=== PATIENT | female | born 1995 | race Caucasian/White ===

== ENCOUNTER 2023-07-23 22:35 | Emergency (ER) | payer OTHER, MEDICAID, SELFPAY ==
--- NOTE | ~2023-07-23 | XR_ITS ---
EXAMINATION: XR KNEE, RIGHT CLINICAL INFORMATION: Pain. COMPARISON: None available. TECHNIQUE: Four views of the right knee. FINDINGS: No fracture or joint effusion. Alignment is anatomic. Joint spaces are maintained. No abnormal soft tissue calcification. XR/XR knee RT 3V IMPRESSION: No significant abnormality identified.
--- NOTE | ~2023-07-23 | XR_ITS ---
EXAMINATION: XR KNEE, LEFT CLINICAL INFORMATION: Pain. COMPARISON: None available. TECHNIQUE: Four views of the left knee. FINDINGS: No fracture or joint effusion. Alignment is anatomic. Joint spaces are maintained. No abnormal soft tissue calcification. XR/XR knee LT 3V IMPRESSION: No significant abnormality identified.
[2023-07-23 22:43] VITALS: BP 137/80; BP 152/62; PULSE 102; PULSE 108; RESP 18; TEMP 37.3; O2SAT 97; BMI 22.9
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
[2023-07-24 01:33] VITALS: BP 115/75; PULSE 100; RESP 18; O2SAT 97
== END 2023-07-24 01:36 | disposition home or self-care (01) ==
PROVIDERS: Emergency Provider Internal Medicine
DX: S80.01XA Contusion of right knee, initial encounter (principal); S80.02XA Contusion of left knee, initial encounter; M25.562 Pain in left knee; M25.561 Pain in right knee; V43.52XA Car driver injured in collision with other type car in traffic accident, initial encounter; Y93.9 Activity, unspecified; Y92.411 Interstate highway as the place of occurrence of the external cause; Y99.9 Unspecified external cause status
CPT/HCPCS: 73562; 99284

== ENCOUNTER 2024-02-17 17:33 | Outpatient (REF) | payer OTHER, MEDICAID, SELFPAY ==
[2024-02-18 15:33] LABS: C. trachomatis RNA TMA NOT DETECTED (NOT DETECTED); N. gonorrhoeae RNA TMA DETECTED (NOT DETECTED)
[2024-03-01 00:05] LABS: C. trachomatis RNA TMA NOT DETECTED (NOT DETECTED); N. gonorrhoeae RNA TMA DETECTED (NOT DETECTED); Trichomonas (NAAT) NOT DETECTED (NOT DETECTED)
== END 2024-02-17 17:34 | disposition home or self-care (01) ==
LOC: HO.HHCLNP 17:33
PROVIDERS: Visit Provider Nurse Practitioner Family
DX: Z12.4 Encounter for screening for malignant neoplasm of cervix (principal); Z20.2 Contact with and (suspected) exposure to infections with a predominantly sexual mode of transmission
CPT/HCPCS: 36415; 81513; 87491; 87591; 87661; 88142

== ENCOUNTER 2024-02-23 15:51 | Outpatient (REF) | payer MEDICAID, SELFPAY | END 2024-02-23 15:52 | disposition home or self-care (01) | LOC: HO.HHCLNP 15:51 | PROVIDERS: Visit Provider Nurse Practitioner Family | DX: A54.9 Gonococcal infection, unspecified (principal) | CPT/HCPCS: 36415; 87081 ==

== ENCOUNTER 2024-02-27 13:05 | Outpatient (REF) | payer OTHER, MEDICAID, SELFPAY ==
[2024-02-28 09:11] LABS: HIV AB/AG Nonreactive (Nonreactive); HIV Num 1 0.05 S/CO (0.00-0.99); ~HepC Num1 0.21 S/CO (0.00-0.79); ~Hepatitis C Antibody Nonreactive (Nonreactive)
[2024-02-29 03:48] LABS: Herpes Simplex Type 2 IgG 2.63 index
[2024-02-29 08:54] LABS: RPR Rapid Plasma Reagin NON-REACTIVE (NON-REACTIVE)
== END 2024-02-27 13:06 | disposition home or self-care (01) ==
LOC: HO.HHCL 13:05
PROVIDERS: Visit Provider Nurse Practitioner Family
DX: Z11.4 Encounter for screening for human immunodeficiency virus [HIV] (principal); Z20.2 Contact with and (suspected) exposure to infections with a predominantly sexual mode of transmission
CPT/HCPCS: 36415; 86592; 86695; 86696; 86803; 87389

== ENCOUNTER 2024-03-09 19:54 | Outpatient (REF) | payer OTHER, MEDICAID, SELFPAY ==
[2024-03-12 21:13] LABS: C. trachomatis RNA TMA NOT DETECTED (NOT DETECTED); N. gonorrhoeae RNA TMA NOT DETECTED (NOT DETECTED)
== END 2024-03-09 19:55 | disposition home or self-care (01) ==
LOC: HO.HHCLNP 19:54
PROVIDERS: Visit Provider Nurse Practitioner Family
DX: A54.9 Gonococcal infection, unspecified (principal); Z20.2 Contact with and (suspected) exposure to infections with a predominantly sexual mode of transmission
CPT/HCPCS: 36415; 81513; 87491; 87591

== ENCOUNTER 2024-08-24 15:44 | Outpatient (REF) | payer OTHER, MEDICAID, SELFPAY ==
[2024-08-24 17:46] LABS: MANUAL DIFF FLAG NO
[2024-08-24 18:08] LABS: Partial Thromboplastin Time 30.5 SEC (26.0-36.8)
[2024-08-24 19:01] LABS: Alanine Aminotransferase 18 U/L (0-31); Albumin Level 4.6 g/dL (3.5-5.0); Alkaline Phosphatase 54 U/L (39-117); Anion Gap 10 (12-20); Aspartate Amino Transferase 19 U/L (5-31); Bilirubin Total 0.2 mg/dL (0.0-1.0); Blood Urea Nitrogen 15 mg/dL (9-16); Calcium 9.8 mg/dL (8.4-10.2); Carbon Dioxide 24 mmol/L (22-29); Chloride 108 mmol/L (96-108); Estimated Glomerular Filt Rate > 60; Glucose Random 101 mg/dL (60-115); Potassium 3.3 mmol/L (3.3-5.1); Sodium 139 mmol/L (135-145); Total Protein 7.5 g/dL (6.5-8.0)
[2024-08-24 19:03] LABS: HCG Quantitative < 2 mIU/mL
[2024-08-24 19:20] LABS: Basophils Percent Auto 0.3 % (0-2); Eosinophils Absolute Auto 0.1 X10*3/uL (0.0-0.4); Hematocrit 40.4 % (37.0-47.0); Imm Gran Abs Auto 0.02 X10*3/uL (0.00-0.03); Imm Gran Pct Auto 0.3 % (0.0-0.4); Lymphocytes Absolute Auto 1.7 X10*3/uL (1.2-4.9); Lymphocytes Percent Auto 21.4 % (20-40); Mean Corpuscular HGB Conc 34.7 g/dl (31.0-35.0); Mean Corpuscular Hemoglobin 31.3 pg (27.0-33.0); Mean Corpuscular Volume 90.4 fL (80.0-98.0); Mean Platelet Volume 11.7 fL (9.4-12.3); Monocytes Absolute Auto 0.4 X10*3/uL (0.1-1.2); Monocytes Percent Auto 5.4 % (2-11); Neutrophils Absolute Auto 5.7 x10*3/uL (2.0-8.3); Neutrophils Percent Auto 71.6 % (45-73); Platelet Count 192 X10*3/uL (160-400); Red Blood Count 4.47 X10*6/uL (4.20-5.50); Red Cell Distribution Width 12.1 % (11.0-16.0)
== END 2024-08-24 15:45 | disposition home or self-care (01) ==
LOC: HO.HHCL 15:44
PROVIDERS: Visit Provider Internal Medicine Geriatric Medicine
DX: Z01.812 Encounter for preprocedural laboratory examination (principal)
CPT/HCPCS: 36415; 80053; 84702; 85025; 85730

== ENCOUNTER 2025-02-20 12:18 | Outpatient (REF) | payer OTHER, MEDICAID, SELFPAY ==
--- OUTSIDE RECORDS SUMMARY | 2025-02-20 14:48 | XMS_ITS | Encounter Summary ---
Author Organization [employer] Address [address] [place] [address] 7 [place] [address] Care Team Providers Care Credit Union Manager Name Role Phone Roxy Haas [facility] Primary Care Provider [phone] Thi Saez ANTENNA DESIGN ENGINEER Primary Care Provider [phone] Veronica Peña SENIOR PRODUCT CONSULTANT Primary Care Provider [phone] Reason for Visit * Reason Onset Date Comments Appointment Request 11/08/2022 Encounter Details Date Type Department Care Team (Late st Contact Info) Description 11/01/2022 Telephone [facility] MEDICINE [address] [place], [place] [phone] Samina Roxy [facility] [address] [place], [place] [phone] Appointment Request Social History Tobacco Use Types Packs/Day Years Used Date Smoking Tobacco: Never Assessed Comments Unknown Sex and Gender Information Value Date Recorded Sex Assigned at Female 09/20/2022 10:22 AM EDT Legal Sex Female 10:22 AM EDT Gender Identity Female 09/20/2022 10:22 AM EDT Sexual Orientation Bisexual 09/20/2022 10 :22 AM EDT documented as of this encounter Miscellaneous Notes * Telephone Encounter - Katherine Diez RN - 01/03/2023 10:52 AM EST TC X1 to pt regarding scheduling Depo RV window 01/28/23-02/11/23. No answer LVM to return call to nurses. * Telephone Encounter - Katherine Diez RN - 11/08/2022 2:10 PM EST TC X1 to pt to r/s Depo NV. No answer. LVM to return call to office. If pt returns call please schedule in any NV slot in any team prior to 11/19/22. * Telephone Encounter - Candy Serrano - 11/08/2022 9:48 AM EST Tc from patient re calling in regards to r/s appt from 11/08/22 with nurse. Details: Depo-RV (11/08/22-11/22/22) * Telephone Encounter - Markus Mathis - 11/05/2022 10:06 AM EST Tc from pt requesting to R/s 11-08-22, Wheel Borer attempted to r/s nothing available at the moment advise pt a nurse will be returning call. documented in this encounter Plan of Treatment Upcoming Encounters Date Type Department Care Team (Late st Contact Info) Description 04/25/2025 1:00 PM EDT Clinical Support [facility] MEDICINE [address] [place] [address] documented as of this encounter Visit Diagnoses Not on filedocumented in this encounter Care Teams Credit Union Manager Relationship Specialty Start Date End Date [place] FNP [address] [place] [id number] PCP - General Family Medicine 05/26/22 08/29/23 Thi Saez FNP [address] [place] [address] PCP - General Family Medicine 08/30/23 03/01/24 Veronica Peña NP [address] [place] [address] PCP - General Family Medicine 03/02/24 documented as of this encounter
--- OUTSIDE RECORDS SUMMARY | 2025-02-20 14:48 | XMS_ITS | Encounter Summary ---
Author Organization [employer] Address [address] [place] [address] [address] [place] [address] Care Team Providers Care Database Consultant Name Role Phone Thi Saez Primary Care Provider [phone] Veronica Peña NP Primary Care Provider [phone] Encounter Details Date Type Department Care Team (Late Contact Info) Description 12/08/2023 Orders Only [facility] [address] [place] [address] Thi Saez FNP [address] [place] [address] Social History Tobacco Use Types Packs/Day Years Used Date Smoking Tobacco: Never Smokeless Tobacco: Never Comments No Sex and Gender Information Value Date Recorded Sex Assigned at Female 09/20/2022 10:22 AM EDT Legal Sex Female 10:22 AM EDT Gender Identity Female 09/20/2022 10:22 AM EDT Sexual Orientation Bisexual 09/20/2022 10 :22 AM EDT documented as of this encounter Plan of Treatment Upcoming Encounters Date Type Department Care Team (Late Contact Info) Description 04/25/2025 1:00 PM EDT Clinical Support [facility] MEDICINE [address] [place] [address] documented as of this encounter Visit Diagnoses Not on filedocumented in this encounter Care Teams Database Consultant Relationship Specialty Start Date End Date Thi Saez FNP [address] [place] [address] PCP - General Family Medicine 08/30/23 03/01/24 Veronica Peña NP [address] [place] [id number] PCP - General Family Medicine 03/02/24 documented as of this encounter
--- OUTSIDE RECORDS SUMMARY | 2025-02-20 14:48 | XMS_ITS | Encounter Summary ---
Author Organization [employer] Address [address] [facility] [address] [place] [address] Care Team Providers Care Personnel Administrator Name Role Phone Veronica Peña NP Primary Care Provider [phone] Encounter Details Date Type Department Care Team ([facility] st Contact Info) Description 11/06/2024 Abstract [facility] MEDICINE [address] [place], [place] [phone] Veronica Peña NP [address] [place], [place] [phone] Social History Tobacco Use Types Packs/Day Years Used Date Smoking Tobacco: Never Smokeless Tobacco: Never Housing Stability Answer Date Recorded What is your housing situation today? I have gretchen armstrong 03/07/[address] you li ve. Do you have problems with any of the following? None of the above 03/07/2024 Food Insecurity Answer Date Recorded Within the past 12 months, y ou worried that your food would run out before you got money to buy more: Never True 03/07/2024 Within the past 12 months,th e food you bought just didn't last and you didn't have enough money to get more: Never True Transportation Answer Date Recorded In the past 12 months, has l ack of transportation kept you from medical appts, meetings, work or from getting things needed for daily living? No 03/07/2024 Utilities Answer Date Recorded In the past 12 months, has t he electric, gas, oil or water company threatened to shut off services in your home? No 03/07/2024 Comments No Sex and Gender Information Value [...] Clinical Support [facility] MEDICINE [address] [place] [address] documented as of this encounter Procedures Procedure Name Priority Date/Time Associated Diagnosis Comments PAP/HPV Routine 02/17/2024 documented in this encounter Results * PAP/HPV (02/17/2024) Pap Smear 1. NILM 1. NILM 02/17/2024 Historical Provider HEALTH MAINTENANCE Final Result documented in this encounter Visit Diagnoses Not on filedocumented in this encounter Care Teams Personnel Administrator Relationship Specialty Start Date End Date Veronica Peña NP [address] [place] [address] PCP - General Family Medicine 03/02/24 documented as of this encounter
--- OUTSIDE RECORDS SUMMARY | 2025-02-20 14:48 | XMS_ITS | Clinical Summary ---
Author Organization [facility] Address [address] [place] [address] Phone Care Team Providers Care Curatorial Specialist Name Role Phone Physician, No Pcp Primary Care Provider Unavaila ble Allergies No known active allergies Encounters Date Type Department Care Team Description 12/23/2024 7:28 PM EST - 12/23/2024 10:54 PM EST Emergency [facility] [address] [place] [address] Mark Champagne MD Abdominal pain, epigastric (Primary Dx); Epigastric pain; Nausea and vomiting, unspecified vomiting type Discharge Disposition: Home or Self Care from Last 3 Months Surgical History Surgery Date Site/Laterality Comments LIPOSUCTION BREAST ENHANCEMENT SURGERY Social History Tobacco Use Types Packs/Day Years Used Date Smoking Tobacco: Never Smokeless Tobacco: Never Tobacco Cessation:Counseling Given: Not Answered Alcohol Use Standard Drinks/Week Comments Yes 0 (1 standard drink = 0.6 oz pur e alcohol) occasional Comments Unknown Sex and Gender Information Value Date Recorded Sex Assigned at Female 12/23/2024 7:59 PM EST Legal Sex Female 5:01 AM EST Gender Identity Female 12/23/2024 7:59 PM EST Sexual Orientation Straight 12/23/2024 7: 59 PM EST Obstetrics History Last Filed Vital Signs Vital Sign Reading Time Taken Comments Blood Pressure 112/92 12/23/2024 7:17 PM EST Pulse 92 12/23/2024 7:17 PM EST Temperature 37.1 ??C (98.8 ??F) 12/23/2024 7:17 PM ES T Respiratory Rate 20 12/23/2024 7:17 PM EST Oxygen Saturation 100% 12/23/2024 7:17 PM EST Inhaled Oxygen Concentration - - Weight 67.4 kg (148 lb 11.2 oz) 12/23/2024 7:17 PM EST Height 160 cm (5' 3 ) 12/23/2024 7:17 PM EST Body Mass Index 26.34 12/23/2024 7:17 PM EST Plan of Treatment Health Maintenance Due Date Last Done Comments Hepatitis B Vaccines (1 of 3 - 19+ 3-dose series) 2013 Pneumococcal Vaccine: Pediatrics (0 to 5 Years) and At-Risk Patients (6 to 64 Years) (1 of 2 - PCV) 2013 HPV Vaccines (2 - 3-dose series) 12/28/2018 11/30/2018 Depression Screening 10/24/2022 Hepatitis C Screening 10/24/2022 Social Influencers of Health Screening 10/24/2022 COVID-19 Vaccine ( season) 2024 Influenza Vaccine (#1) 2024 0, 10/31/2017, 12/23/2015, Additional history exists Cervical Cancer Screening: Pap Smear 02/19/2027 02/20/2024 DTaP,Tdap,and Td Vaccines (3 - Td or Tdap) 10/31/2027 10/31/2017, 09/11/2013 HIV Screening Completed 02/27/2024 HIB Vaccines Aged Out No longer eligi ble based on patient's age to complete this topic Hepatitis A Vaccines Aged Out No long er eligible based on patient's age to complete this topic IPV Vaccines Aged Out No longer eligi ble based on patient's age to complete this topic MMR Vaccines Aged Out No longer eligi ble based on patient's age to complete this topic Meningococcal ACWY Vaccine Aged Out N o longer eligible based on patient's age to complete this topic Meningococcal B Vacine Aged Out No lo nger eligible based on patient's age to complete this topic RSV Immunization Patients Under 20 months Aged Out No longer eligible based on patient's age to complete this topic Varicella Vaccines Aged Out No longer eligible based on patient's age to complete this topic Procedures Procedure Name Priority Date/Time Associated Diagnosis Comments US ABDOMEN LIMITED STAT 12/23/2024 9: 19 PM EST HCG, SERUM, QUALITATIVE STAT Add-on 12/23/2024 7:27 PM EST CBC WITH AUTO DIFFERENTIAL STAT 12/23/2024 7:27 PM EST LIPASE STAT 12/23/2024 7:27 PM EST MAGNESIUM STAT 12/23/2024 7:27 PM EST COMPREHENSIVE METABOLIC PANEL STAT 12/23/2024 7:27 PM EST CBC AND DIFFERENTIAL STAT 12/23/2024 7:27 PM EST from Last 3 Months Results * US Abdomen Limited (12/23/2024 9:19 PM EST) Anatomical Region Laterality Modality Body Ultrasound 12/23/2024 9:59 PM EST Impressions 12/23/2024 9:59 PM EST Impression: Probable hemangiomas in the liver as above Recommend six-month follow-up ultrasound No acute processes This document has been electronically signed by: Jose Thornton MD on 12/23/2024 21:59:30 Narrative 12/23/2024 9:59 PM EST US abdomen limited Comparison: None Findings: Well-defined 2.6 cm x 2.8 cm hyperechoic lesion right lobe of liver. Well-defined 1.1 cm x 0.9 cm hyperechoic lesion left lobe of liver. These most likely represent small hemangiomas. Follow-up ultrasound recommended in 6 months. Right lobe 17.9 cm length. Main portal vein with antegrade flow. Visualized pancreas unremarkable. Gallbladder unremarkable without stones or wall thickening. Common duct 4.6 mm diameter. No ultrasonographic Garcia sign. Right kidney 10.2 cm length without hydronephrosis. Procedure Note Jose Thornton MD - 12/23/2024 US abdomen limited Comparison: None Findings: Well-defined 2.6 cm x 2.8 cm hyperechoic lesion right lobe of liver. Well-defined 1.1 cm x 0.9 cm hyperechoic lesion left lobe of liver. These most likely represent small hemangiomas. Follow-up ultrasound recommended in 6 months. Right lobe 17.9 cm length. Main portal vein with antegrade flow. Visualized pancreas unremarkable. Gallbladder unremarkable without stones or wall thickening. Common duct 4.6 mm diameter. No ultrasonographic Garcia sign. Right kidney 10.2 cm length without hydronephrosis. IMPRESSION: Impression: Probable hemangiomas in the liver as above Recommend six-month follow-up ultrasound No acute processes This document has been electronically signed by: Jose Thornton MD on 12/23/2024 21:59:30 us Jackie HOWE IMG US PROCEDURES Rima l Result * (ABNORMAL) CBC auto differential (12/23/2024 7:27 PM EST) Pathologist [facility] WBC 11.9(H) 4.8 - 10.8 K/mcL LAB HEMETOLOGY METHOD 12/23/2024 7:42 PM [facility] RBC 4.90(H) 3.80 - 4.80 M/mcL LAB HEMETOLOGY METHOD 12/23/2024 7:42 PM [facility] Hemoglobin 14.9 11.5 - 16.0 g/dL LAB HEMETOLOGY METHOD 12/23/2024 7:42 PM [facility] Hematocrit 43.1 35.0 - 47.0 % LAB HEMETOLOGY METHOD 12/23/2024 7:42 PM [facility] MCV 87.8 79.0 - 98.0 FL LAB HEMETOLOGY METHOD 12/23/2024 7:42 PM [facility] MCH 30.3 27.0 - 32.0 pcg LAB HEMETOLOGY METHOD 12/23/2024 7:42 PM [facility] MCHC 34.6 32.0 - 37.0 g/dL LAB HEMETOLOGY METHOD 12/23/2024 7:42 PM [facility] RDW 12.2 11.0 - 15.0 % LAB HEMETOLOGY METHOD 12/23/2024 7:42 PM [facility] Platelets 264 130 - 400 K/mcL LAB HEMETOLOGY METHOD 12/23/2024 7:42 PM [facility] MPV 11.1(H) 7.0 - 11.0 FL LAB HEMETOLOGY METHOD 12/23/2024 7:42 PM [facility] NRBC 0.0 <1.0 % LAB HEMETOLOGY METHOD 12/23/2024 7:42 PM [facility] NRBC Absolute 0.00 <0.10 K/mcL LAB HEMETOLOGY METHOD 12/23/2024 7:42 PM [facility] Neutrophils Relative 74.6 % LAB HEMETOLOGY METHOD 12/23/2024 7:42 PM [facility] Lymphocytes Relative 18.7 % LAB HEMETOLOGY METHOD 12/23/2024 7:42 PM [facility] Monocytes Relative 6.1 % LAB HEMETOLOGY METHOD 12/23/2024 7:42 PM [facility] Eosinophils Relative 0.1 % LAB HEMETOLOGY METHOD 12/23/2024 7:42 PM [facility] Basophils Relative 0.3 % LAB HEMETOLOGY METHOD 12/23/2024 7:42 PM [facility] Immature Granulocytes Relative 0.2 % LAB HEMETOLOGY METHOD 12/23/2024 7:42 PM [facility] Neutrophils Absolute 8.85(H) 1.50 - 7.00 K/mcL LAB HEMETOLOGY METHOD 12/23/2024 7:42 PM [facility] Lymphocytes Absolute 2.22 1.00 - 5.00 K/mcL LAB HEMETOLOGY METHOD 12/23/2024 7:42 PM [facility] Monocytes Absolute 0.72 0.20 - 1.00 K/mcL LAB HEMETOLOGY METHOD 12/23/2024 7:42 PM [facility] Eosinophils Absolute 0.01 0.00 - 0.50 K/mcL LAB HEMETOLOGY METHOD 12/23/2024 7:42 PM EST [facility] Basophils Absolute 0.03 0.00 - 0.20 K/[facility] LAB HEMETOLOGY METHOD 12/23/2024 7:42 PM EST [facility] Immature Granulocytes Absolute 0.02 0.00 - 0.03 K/[facility] LAB HEMETOLOGY METHOD 12/23/2024 7:42 PM EST [facility] Blood Venous blood specimen / Unknown Venipuncture / Unknown 12/23/2024 7:27 PM EST 12/23/2024 7:35 PM EST Mark Champagne MD LAB BLOOD ORDERABLES Final Resu lt Performing Organization Address City/[facility]/ZIP Co de Phone Number [facility] [address] [place] [address], [place] [phone] * hCG, serum, qualitative (12/23/2024 7:27 PM EST) hCG Qual Negative Negative 12/23/2024 7:51 PM EST [facility] Blood Venous blood specimen / Unknown Venipuncture / Unknown 12/23/2024 7:27 PM EST 12/23/2024 7:35 PM EST Mark Champagne MD LAB BLOOD ORDERABLES Final Resu lt [facility] [address] [place] [address], [place] [phone] * Magnesium (12/23/2024 7:27 PM EST) Magnesium 2.0 1.9 - 2.6 mg/dL LAB CHEMISTRY METHOD 12/23/2024 8:08 PM [facility] Blood Venous blood specimen / Unknown Venipuncture / Unknown 12/23/2024 7:27 PM EST 12/23/2024 7:35 PM EST Mark Champagne MD LAB BLOOD ORDERABLES Final Resu lt Performing Organization Address [facility]/ZIP Co de Phone Number [facility] [address] [place] [address], [place] [phone] * Lipase (12/23/2024 7:27 PM EST) Lipase 31 13 - 75 unit/L LAB CHEMISTRY METHOD 12/23/2024 8:08 PM [facility] Blood Venous blood specimen / Unknown Venipuncture / Unknown 12/23/2024 7:27 PM EST 12/23/2024 7:35 PM EST Mark Champagne MD LAB BLOOD ORDERABLES Final Resu lt Performing Organization Address [facility]/ZIP Co de Phone Number [facility] [address] [place] [address], [place] [phone] * (ABNORMAL) Comprehensive metabolic panel (12/23/2024 7:27 PM EST) Pathologist [facility] Sodium 137 133 - 145 mmol/L LAB CHEMISTRY METHOD 12/23/2024 8:08 PM [facility] Potassium 3.5 3.5 - 5.5 mmol/L LAB CHEMISTRY METHOD 12/23/2024 8:08 PM [facility] Chloride 107 96 - 110 mmol/L LAB CHEMISTRY METHOD 12/23/2024 8:08 PM [facility] CO2 22 21 - 32 mmol/L LAB CHEMISTRY METHOD 12/23/2024 8:08 PM [facility] Anion Gap 8 3 - 11 LAB CHEMISTRY METHOD 12/23/2024 8:08 PM [facility] Glucose 117(H) 70 - 100 mg/dL LAB CHEMISTRY METHOD 12/23/2024 8:08 PM [facility] BUN 13 5 - 25 mg/dL LAB CHEMISTRY METHOD 12/23/2024 8:08 PM [facility] Creatinine 0.82 0.50 - 1.10 mg/dL LAB CHEMISTRY METHOD 12/23/2024 8:08 PM [facility] eGFR 99 >=60 mL/min/1. 73m2 LAB CHEMISTRY METHOD 12/23/2024 8:08 PM [facility] Comment:Calculation based on the??Chronic Kidney Disease Epidemiology Collaboration (CKD-EPI) equation refit??without adjustment for race. BUN/Creatinine Ratio 15.9 LAB CHEMISTRY METHOD 12/23/2024 8:08 PM [facility] Calcium 9.4 8.5 - 10.5 mg/dL LAB CHEMISTRY METHOD 12/23/2024 8:08 PM [facility] AST (SGOT) 16 10 - 42 unit/L LAB CHEMISTRY METHOD 12/23/2024 8:08 PM [facility] ALT (SGPT) 25 10 - 60 unit/L LAB CHEMISTRY METHOD 12/23/2024 8:08 PM [facility] Alkaline Phosphatase 69 42 - 121 unit/L LAB CHEMISTRY METHOD 12/23/2024 8:08 PM [facility] Total Protein 7.7 6.0 - 8.0 g/dL LAB CHEMISTRY METHOD 12/23/2024 8:08 PM [facility] Albumin 4.3 3.2 - 5.0 g/dL LAB CHEMISTRY METHOD 12/23/2024 8:08 PM [facility] Total Bilirubin 0.4 0.0 - 1.4 mg/dL LAB CHEMISTRY METHOD 12/23/2024 8:08 PM [facility] Blood Venous blood specimen / Unknown Venipuncture / Unknown 12/23/2024 7:27 PM EST 12/23/2024 7:35 PM EST us Mark Champagne MD LAB BLOOD ORDERABLES Final Resu lt [facility] LAB [address] [place] [address], [place] [phone] from Last 3 Months Insurance MEDICAID - [place] Care Teams Curatorial Specialist Relationship Specialty Start Date End Date Physician, No Pcp PCP - General 12/23/24
--- OUTSIDE RECORDS SUMMARY | 2025-02-20 14:48 | XMS_ITS | Encounter Summary ---
Author Organization [employer] Address [address] [place] [address] [address] [place] [address] Care Team Providers Care Reclamation Supervisor Name Role Phone Thi Saez Primary Care Provider [phone] Veronica Peña NP Primary Care Provider [phone] Encounter Details Date Type Department Care Team (Late Contact Info) Description 01/24/2024 Orders Only [facility] [address] [place] [address] Thi Saez FNP [address] [place] [address] Social History Tobacco Use Types Packs/Day Years [...] Description 04/25/2025 1:00 PM EDT Clinical Support [facility] MEDIC[facility] [address] [place] [address] documented as of this encounter Visit Diagnoses Not on filedocumented in this encounter Care Teams Reclamation Supervisor Relationship Specialty Start Date End Date Thi Saez FNP [address] [place] [address] PCP - General Family Medicine 08/30/23 03/01/24 Veronica Peña NP [address] [place] [address] PCP - General Family Medicine 03/02/24 documented as of this encounter
--- OUTSIDE RECORDS SUMMARY | 2025-02-20 14:48 | XMS_ITS | Clinical Summary ---
Author Organization [facility] Address [address] [place] [address] 7t [place] [address] Care Team Providers Care Hub Lead Name Role Phone Veronica Peña NP Primary Care Provider [phone] Allergies No known active allergies Medications mirtazapine (Remeron) 7.5 MG tablet Take 1 tablet by mouth at bed time. 021 Active hydrOXYzine pamoate (Vistaril) 50 MG capsule Take 50 mg by mouth at bedtime. 021 Active cholecalciferol (Vitamin D-3) 50 MCG (2000 UT) capsule Take 1 capsule by mouth in the morning. 018 Active aspirin-acetami nophen-caffeine (Excedrin Migraine) 250-250-65 MG tablet Take 1-2 tablets every 6 hrs prn headaches 020 Active acetaminophen (Tylenol) 500 MG tablet take 1 tablet (500MG) by oral route every 6 hours as needed 018 Active Mometasone Furoate (Asmanex HFA) 200 MCG/ACT aerosolIndicati ons:Mild intermittent asthma without complication Inhale 1 puff 2 times daily. 1 puff po bid 13 g 1 024 Active medroxyPROGESTE Robert (Depo-Provera) 150 MG/ML injectionIndica tions:Encounter for management and injection of depo-Provera TAKE TO DOCTOR'S OFFICE FOR ADMINISTRATION EVERY 3 MONTHS 1 mL 3 024 Active Ventolin HFA 108 (90 Base) MCG/ACT inhalerIndicati ons:Mild persistent asthma, unspecified whether complicated INHALE 2 PUFFS EVERY 4 HOURS IF NEEDED FOR WHEEZING. 18 g 024 Active omeprazole (PriLOSEC) [address] capsuleIndicati ons:Epigastric pain Take 1 capsule (20 mg) by mouth before breakfast. 30 capsule 1 025 Active omeprazole (PriLOSEC) [address] capsule Take 1 capsule by mouth. 021 2024 Discontinued(R eorder (will not trigger notification to Pharmacy)) clindamycin (Clindagel) 1 % gelIndications: Rash Apply topically 2 times daily for 7 days. 60 g 025 2024 Hospital, Clinic, or Other Facility Administered Medication Ordered Dose Route Frequency Start Date End Date Status medroxyPROGESTERone (Depo-Provera) injection 150 mgIndications:Depo-Pro vera contraceptive status 150 mg IM Every 3 months 11/12/2022 Active medroxyPROGESTERone (Depo-Provera) injection 150 mgIndications:Encounte r for management and injection of depo-Provera 150 mg IM Every 3 months 01/31/2025 Active medroxyPROGESTERone (Depo-Provera) injection 150 mgIndications:Encounte r for surveillance of injectable contraceptive 150 mg IM Every 3 months 05/04/2025 07/27/2026 Active Active Problems Problem Noted Date Diagnosed Date Encounter for other contraceptive management 09/2024 Encounter for management and injection of depo-P rovera 08/31/2024 HSV (herpes simplex virus) anogenital infection 04/09/2024 Screening examination for STI 02/24/2024 Gonorrhea 02/21/2024 Assessment & Plan (03/17/2024 12:56 PM EDT): Test of clearance performed today, pt remains asymptomatic, partner tested, reports abstaining during treatment, continue depo no questions today BV (bacterial vaginosis) 02/21/2024 Cervical cancer screening 02/17/2024 Assessment & Plan (02/17/2024 3:25 PM EDT): Pap and STI screening completed today Polyuria 02/17/2024 Assessment & Plan (02/17/2024 3:24 PM EDT): Brother recently diagnosed with type I dm COVID-19 rut ray manifesting chronic headach e 12/08/2022 Sore throat 12/08/2022 Overweight 10/29/2022 Mild persistent asthma 10/29/2022 Assessment & Plan (02/17/2024 3:23 PM EDT): Using inhaler daily , reviewed indication for stepwise therapy, and rinse mouth out after usage Aware of symptoms to report Intermittent asthma 12/09/2017 Adjustment disorder with mix ed disturbance of emotions and conduct 10/04/2013 Tobacco dependence syndrome 06/11/2013 Depressive disorder 06/11/2013 Eczema 11/21/1960 Resolved Problems Problem Noted Date Diagnosed Date Resolved Date COVID 12/08/2022 02/17/2024 Assessment & Plan (12/08/2022 2:10 PM EST): Patient refers symptoms started 2 days ago, complains of sore throat, cough, headaches, denied shortness of breath. Will start on paxlovid, risk vs benefits discussed, told to maintain well hydrated, rest and in case of worsening symptoms to visit er. Encounters Date Type Department Care Team Description 02/19/2025 Telephone [facility] MEDICINE [address] [place] [phone] Veronica Peña NP Lab Orders 02/01/2025 Orders Only [facility] MEDICINE [address] [place] [phone] Veronica Peña NP Encounter for surveillance of injectable contraceptive (Primary Dx) 02/01/2025 Population Health Risk Score Community [facility] (C3) Department [address] [id number] Provider, Population Health Generic 01/31/2025 1:30 PM EDT Clinical Support [facility] MEDICINE [address] [place] [phone] Fadumo Rahman, KARINA Encounter for other contraceptive management (Primary Dx) 01/31/2025 Orders Only [facility] MEDICINE [address] [place] [phone] Janie Ashley MD Encounter for management and injection of depo-Provera (Primary Dx) 01/31/2025 Travel 01/30/2025 Telephone [facility] MEDICINE [address] [place] [phone] Veronica Peña NP 01/25/2025 1:30 PM EST Office Visit [address] [address] Maite Harper NP Epigastric pain (Primary Dx); Rash 01/23/[address] [address] Karen Mcgrath MA chartprep 12/28/[address] [address] Veronica Peña NP Appointment Request 12/25/[address] [address] Veronica Peña NP ER Follow-up from Last 3 Months Immunizations Name Administration Dates Next Due Influenza injectable quadrivalent preservative f ree 09/08/2020,12/23/2015 Influenza, Split (incl. purified surface antigen ) 09/11/2013 Tdap 09/11/2013 Social History Tobacco Use Types Packs/Day Years Used Date Smoking Tobacco: Never Smokeless Tobacco: Never Tobacco Cessation:Counseling Given: Not Answered Depression Answer Date Recorded Patient Health Questionnaire-9 Score 0 01/25/2025 Patient Health Questionnaire-9 Score 0 01/25/2025 Last PHQ-9: Questionnaire Data Not on file 0 01/25/2025 Housing Stability Answer Date Recorded What is [...] off services in your home? No 03/07/2024 Depression Answer Date Recorded Patient Health Questionnaire-2 Score 0 01/25/2025 Internet Access Answer Date Recorded Internet Access Q1 Yes 01/25/2025 Internet Access Q2 Not on file 01/25/2025 Comments No Sex and Gender Information Value Date Recorded Sex Assigned at Female 09/20/2022 10:22 AM EDT Legal Sex Female 10:22 AM EDT Gender Identity Female 09/20/2022 10:22 AM EDT Sexual Orientation Bisexual 09/20/2022 10 :22 AM EDT Last Filed Vital Signs Vital Sign Reading Time Taken Comments Blood Pressure 102/65 01/31/2025 2:20 PM EDT Pulse 88 01/31/2025 2:20 PM EDT Temperature 36.8 ??C (98.2 ??F) 01/31/2025 2:20 PM ED T Respiratory Rate 16 01/31/2025 2:20 PM EDT Oxygen Saturation 99% 01/31/2025 2:20 PM EDT Inhaled Oxygen Concentration - - Weight 67 kg (147 lb 12.8 oz) 01/31/2025 2:20 PM EDT Height 157.5 cm (5' 2 ) 01/25/2025 1:55 PM EST Body Mass Index 27.03 01/25/2025 1:55 PM EST Plan of Treatment Upcoming Encounters Date Type Department Care Team (Late st Contact Info) Description 04/25/2025 1:00 PM EDT Clinical Support [facility] MEDICINE [address] [place] [phone] Health Maintenance Due Date Last Done Comments Alcohol/Substance Use Screening 2006 Family Planning (PISQ) 2009 Hepatitis B Vaccines (1 of 3 - 19+ 3-dose series) 2013 Pneumococcal Vaccine: Pediatrics (0 to 5 Years) and At-Risk Patients (6 to 49) Years) (1 of 2 - PCV) 2013 HPV Vaccines (2 - 3-dose series) 12/28/2018 11/30/2018 HPV/Cotest 11/27/2023 COVID-19 Vaccine (1 - 2023- season) 2024 Influenza Vaccine (#1) 2024 0, 10/31/2017, 12/23/2015, Additional history exists Depression Screening 01/25/2026 01/25/2025, 01/26/20 25 SDOH Screening 01/25/2026 01/25/2025 Tobacco Screening 01/25/2026 01/25/2025 Cervical Cancer Screening 02/19/2027 Pap Smear 02/19/2027 02/20/2024, 04/0 11/2023, 02/17/2024, Additional history exists DTaP/Tdap/Td Vaccines (3 - Td or Tdap) 10/31/2027 10/31/2017, 09/11/2013 Zoster Vaccines (1 of 2) 2044 RSV Patients and Patients Aged 60 years or older (1 - 1-dose 75+ series) 2069 HIV Screening Completed 02/27/2024, 09/08/2020 Hepatitis C Screening Completed 02/27/2024, 020 HIB Vaccines Aged Out No longer eligi ble based on patient's age to complete this topic Hepatitis A Vaccines Aged Out No long er eligible based on patient's age to complete this topic IPV Vaccines Aged Out No longer eligi ble based on patient's age to complete this topic Meningococcal Vaccine Aged Out No aman tiki eligible based on patient's age to complete this topic RSV under 20 months Aged Out No longe r eligible based on patient's age to complete this topic Rotavirus Vaccines Aged Out No longer eligible based on patient's age to complete this topic Procedures Procedure Name Priority Date/Time Associated Diagnosis Comments POCT , URINE Routine 01/31/2025 1:55 PM EDT Encounter for other contraceptive management HEPATITIS C ANTIBODY Routine 02/27/2024 1:10 PM EDT Screening examination for STI HIV 1/2 ANTIGEN/ANTIBODY, FOURTH GENERATION W/RFL Routine 02/27/2024 1:10 PM EDT Screening examination for STI PAP SMEAR Routine 02/20/2024 11:42 AM EDT from Last 3 Months or Most Recently Relevant to Health Maintenance Results * POCT Urine (01/31/2025 1:55 PM EDT) Pathologist [facility] Preg Test, Ur Negative Negative, Indeterminate, None Detected, Invalid, Specimen unsatisfactory for evaluation, Weakly Positive QC Media Lot # [id number] Lot# Expiration Date [id number] Urine 01/31/2025 1:55 PM EDT us Janie Lyons MD POINT OF CARE TEST EN TER/EDIT ORDERABLES Final Result * Hepatitis C Ab (02/27/2024 1:10 PM EDT) [facility] Hepatitis C Antibody Nonreactive Nonreactive [facility] Comment:Antibodies to HCV no t detected; does not exclude early acuteHCV infection. Blood Venous blood specimen / Unknown 02/27/2024 1:10 PM EDT 02/27/2024 4:10 PM EDT us Veronica Peña NP LAB BLOOD ORDERABLES Final Resul t [facility] [address] [place] [phone] * HIV-1/2 Antigen and Antibodies, Fourth Generation, with Reflexes (02/27/2024 1:10 PM EDT) [facility] HIV AB/AG Nonreactive Nonreactive [facility] Comment:HIV-1 p24 Ag and/or HIV-1/HIV-2 Ab not detected.A test result that is nonreactive does not exclude thepossibility of exposure to or infection with HIV-1 and/orHIV-2. Nonreactive results in this assay for individualswith prior exposure to HIV-1 and/or HIV-2 may be due toantigen and antibody levels that are below the limit ofdetection of this assay.The [facility] [facility] HIV Ag/Ab Combo assay result andsupplemental assay results should be interpreted inconjunction with the patient's clinical presentation,history and other laboratory results. If the results areinconsistent with clinical evidence, additional testing issuggested to confirm the result. Blood Venous blood specimen / Unknown 02/27/2024 1:10 PM EDT 02/27/2024 4:10 PM EDT us Veronica Peña NP LAB BLOOD ORDERABLES Final Resul t [facility] [address] [place] [phone] * Pap Smear (02/20/2024 11:42 AM EDT) 02/20/2024 11:4 2 AM EDT 02/21/2024 7:00 AM EDT Narrative [facility] - 03/09/2024 9:24 AM EDT ----- ------- Name: Yelena Almanzar ?Age/Sex: 28/F ? : 1995 Unit#: [id number] ?? Attend Dr: Veronica Peña PAPER MILL SUPERVISOR ?Re02/17/24 ?Status: DEP REF ? Location: HO.HHCLNP ? Disch: ? ----- ------- SPEC : [id number] ? RECD: 02/21/24 ? STATUS: ??SOUT ? REQ NUM: [id number] ? DARCI: 02/20/24 ? SUBM DR: Veronica Peña PAPER MILL SUPERVISOR ? ENTERED: ??02/21/24 ?SP TYPE: Pap Smr ?OTHR : ? ORDERED: ??Pap Smear ? Interpretation ?? Satisfactory for evaluation. ?? Fungal organisms consistent with Kelsie species. ?? Negative for intraepithelial lesion or malignancy. ?Clinical Information LMP: 11/14/2023 Previous PAP test: 2020, WNL ? Material Received ?? ThinPrep-Vaginal/Cervical ----- ------- Signed (signature on file) SHANE Christianson ([facility]) 03/09/24 0924 ? ----- ------- ? END OF REPORT ? us Veronica Peña NP LAB CYTOLOGY ORDERABLES Final Re sult [facility] Organization Address City/State/ZIP Co de Phone Number [facility] [address] [place] [phone] from Last 3 Months or Most Recently Relevant to Health Maintenance Insurance [employer] C3 Care Teams Hub Lead Relationship Specialty Start Date End Date Veronica Peña NP [address] [place] [phone] PCP - General Family Medicine 03/02/24
--- OUTSIDE RECORDS SUMMARY | 2025-02-20 14:48 | XMS_ITS | Encounter Summary ---
Author Organization [employer] Address [address] [place] [address] 7 [place] [address] Care Team Providers Care Loss Prevention Research Engineer Name Role Phone Thi SaezP Primary Care Provider [phone] Veronica Peña NP Primary Care Provider [phone] Reason for Visit * Reason Onset Date Comments Appointment Request 10/19/2023 Encounter Details Date Type Department Care Team (Late st Contact Info) Description 10/19/2023 Telephone [facility] MEDICINE [address] [place], [place] [phone] Thi Saez FNP [address] [place], [place] [phone] Appointment Request Social History Tobacco Use Types [...] encounter Miscellaneous Notes * Telephone Encounter - Jerri Holland RN - 10/20/2023 11:28 AM EST T/C to pt. For below message. Pt. Schedule for Re - depo apt. On 12/06/2023, pt. Verbally agreed and understood. * Telephone Encounter - Lucie Waller - 10/19/2023 9:18 AM EST Tc from pt requesting Depo appt. documented in this encounter Plan of Treatment Upcoming Encounters Date Type Department Care Team (Late st Contact Info) Description 04/25/2025 1:00 PM EDT Clinical Support [facility] MEDICINE [address] [place] [address] documented as of this encounter Visit Diagnoses Not on filedocumented in this encounter Care Teams Loss Prevention Research Engineer Relationship Specialty Start Date End Date Thi Saez FNP [address] [place] [address] PCP - General Family Medicine 08/30/23 03/01/24 Veronica Peña NP [address] [place] [address] PCP - General Family Medicine 03/02/24 documented as of this encounter
--- OUTSIDE RECORDS SUMMARY | 2025-02-20 14:48 | XMS_ITS | Encounter Summary ---
Author Organization [employer] Address [address] 7t [place] [address] Care Team Providers Care Line Welder Name Role Phone Veronica Peña NP Primary Care Provider [phone] Reason for Visit * Reason Onset Date Comments Error 04/27/2024 Encounter Details Date Type Department Care Team ([facility] st Contact Info) Description 04/27/2024 Telephone [facility] MEDICINE [address] [place], [place] [phone] Veronica Peña NP [address] [place] [address] Error Social History Tobacco Use Types Packs/Day Years [...] Description 04/25/2025 1:00 PM EDT Clinical Support [facility] MEDICINE [address] [place] [address] documented as of this encounter Visit Diagnoses Not on filedocumented in this encounter Care Teams Line Welder Relationship Specialty Start Date End Date Veronica Peña NP [address] [place] [address] PCP - General Family Medicine 03/02/24 documented as of this encounter
--- OUTSIDE RECORDS SUMMARY | 2025-02-20 14:48 | XMS_ITS | Encounter Summary ---
Author Organization [employer] Address [address] [facility] 7t [place] [address] Care Team Providers Care Counterintelligence/Humint Specialist Name Role Phone Roxy HaasP Primary Care Provider [phone] Thi Saez METALLURGIST HELPER Primary Care Provider [phone] Veronica Peña PRESS CLEANER Primary Care Provider [phone] Reason for Visit * Reason Comments Med Change Request Encounter Details Date Type Department Care Team (Late Contact Info) Description 06/07/2023 Refill [facility] [address] [place] [phone] Brittny Beltrán MD [address] [place], [place] [phone] Squamous blepharitis of left upper eyelid Social History Tobacco Use Types Packs/Day Years [...] 1:00 PM EDT Clinical Support [facility] MEDICINE [address] [place] [address] documented as of this encounter Visit Diagnoses Diagnosis Squamous blepharitis of left upper eyelid documented in this encounter Care Teams Counterintelligence/Humint Specialist Relationship Specialty Start Date End Date Roxy Haas FNP [address] [place] [address] PCP - General Family Medicine 05/26/22 08/29/23 Thi Saez FNP [address] [place] [address] PCP - General Family Medicine 08/30/23 03/01/24 Veronica Peña NP [address] [place] [address] PCP - General Family Medicine 03/02/24 documented as of this encounter
--- OUTSIDE RECORDS SUMMARY | 2025-02-20 14:48 | XMS_ITS | Encounter Summary ---
Author Organization [employer] Address [address] [facility] 7t [place] [address] Care Team Providers Care Driller Brake Lining Name Role Phone Veronica Peña NP Primary Care Provider [phone] Reason for Visit * Reason Onset Date Comments Pre-op Visit 06/07/2024 Encounter Details Date Type Department Care Team ([facility] st Contact Info) Description 06/07/2024 Telephone [facility] MEDICINE [address] [place], [place] [phone] Veronica Peña NP [address] [place] [address] Pre-op Visit Social History Tobacco Use Types Packs/Day Years [...] Telephone Encounter - Jerri Holland RN - 06/08/2024 9:55 AM EDT Noted. T.C to office [phone] for type of anaesthesia using, office states they use general anaesthesia. Last office notes requested, states pt. Does not has any visit yet. * Telephone Encounter - Markus Arizmendi - 06/07/2024 4:31 PM EDT PT agreed to Pre-op visit on 08/[address] Wells . Date of Surgery: 09/13/24 Surgical procedure being done: Breast and Tummy tuck Type of anesthesia: unknown Lab needed: Yes EKG: Yes Surgeon's name: Dr. Culp Facility name: [facility] Surgery Surgeon's office number: [phone] Surgeon's office fax number: [phone] * Telephone Encounter - Reginald Whitman - 06/07/2024 1:52 PM EDT Date of Surgery: 09/13/24 Surgical procedure being done: Breast and Tummy tuck Type of anesthesia: unknown Lab needed: Yes EKG: Yes Surgeon's name: Dr. Culp [facility] Surgeon's office number: [phone] Surgeon's office fax number: [phone] documented in this encounter Plan of Treatment Upcoming Encounters Date Type Department Care Team (Late st Contact Info) Description 04/25/2025 1:00 PM EDT Clinical Support [facility] MEDICINE [address] [place] [address] documented as of this encounter Visit Diagnoses Not on filedocumented in this encounter Care Teams Driller Brake Lining Relationship Specialty Start Date End Date Veronica Peña NP [address] [place] [address] PCP - General Family Medicine 03/02/24 documented as of this encounter
--- OUTSIDE RECORDS SUMMARY | 2025-02-20 14:48 | XMS_ITS | Encounter Summary ---
Author Organization [employer] Address [address] [facility] 7 [place] [address] Care Team Providers Care Customer Experience Intern Name Role Phone Veronica Peña NP Primary Care Provider [phone] Reason for Visit * Reason Onset Date Comments Lab Orders 02/19/2025 Encounter Details Date Type Department Care Team ([facility] st Contact Info) Description 02/19/[address] [facility] MEDICINE [address] [place], [place] [phone] Veronica Peña NP [address] [place], [place] [phone] Lab Orders Social History Tobacco Use Types Packs/Day Years Used Date Smoking Tobacco: Never Smokeless Tobacco: Never Depression Answer Date Recorded Patient Health Questionnaire-9 [...] encounter Miscellaneous Notes * Telephone Encounter - Fadumo Rahman RN - 02/19/2025 1:20 PM EDT TC placed to pt to inform TSPOT TB test ordered. Pt verbalized understanding and denies questions at this time. * Telephone Encounter - Jese Bueno - 02/19/2025 1:05 PM EDT Tc from pt requesting lab order for TB test as needed for work documented in this encounter Plan of Treatment Upcoming Encounters Date Type Department Care Team (Late st Contact Info) Description 04/25/2025 1:00 PM EDT Clinical Support [facility] MEDICINE [address] [place] [phone] Scheduled Orders Name Type Priority Associated Diagnoses Orde r Schedule T-SPOT??.TB Lab Routine Screening-pulmonary TB Expected: 02/19/2025 (Approximate), Expires: 02/19/2026 documented as of this encounter Visit Diagnoses Diagnosis Screening-pulmonary TB- Primary Screening examination for pulmonary tuberculosis documented in this encounter Additional Health Concerns Assessment Noted Time PHQ-9 Depression Total Score: 0 01/26/20 25 1:56 PM EST documented as of this encounter Care Teams Customer Experience Intern Relationship Specialty Start Date End Date Veronica Peña NP [address] [place] [address] PCP - General Family Medicine 03/02/24 documented as of this encounter
--- OUTSIDE RECORDS SUMMARY | 2025-02-20 14:48 | XMS_ITS | Encounter Summary ---
Author Organization [employer] Address [address] [facility] 7t [place] [address] Care Team Providers Care Internal Wholesaler Name Role Phone Veronica Peña NP Primary Care Provider [phone] Reason for Visit * Reason Onset Date Comments Pre Op 06/15/2024 Encounter Details Date Type Department Care Team ([facility] st Contact Info) Description 06/15/2024 Telephone [facility] MEDICINE [address] [place], [place] [phone] Veronica Peña NP [address] [place], [place] [phone] Pre Op Social History Tobacco Use Types Packs/Day Years [...] encounter Miscellaneous Notes * Telephone Encounter - Markus Arizmendi - 06/15/2024 10:44 AM EDT TC placed to pt for rescheduling of Pre-op visit . Agreed to 08/[address] Wells * Telephone Encounter - Yuval Valle - 06/15/2024 9:51 AM EDT Tc from pt calling in regards to Pre Op scheduled for 08/17 stating she was advised to have appt scheduled specifically 10 days before before upcoming surgery, anything more or less they will not be able to complete procedure. Please contact pt at [phone]. documented in this encounter Plan of Treatment Upcoming Encounters Date Type Department Care Team (Late st Contact Info) Description 04/25/2025 1:00 PM EDT Clinical Support [facility] MEDICINE [address] [place] [address] documented as of this encounter Visit Diagnoses Not on filedocumented in this encounter Care Teams Internal Wholesaler Relationship Specialty Start Date End Date Veronica Peña NP [address] [place] [address] PCP - General Family Medicine 03/02/24 documented as of this encounter
[2025-02-23 00:24] LABS: TS Negative Control Passed; TS Panel A 0; TS Panel B 0; TS Positive Control Passed; TSpotTB Negative (Negative)
== END 2025-02-20 12:19 | disposition home or self-care (01) ==
LOC: HO.HHCL 12:18
PROVIDERS: Visit Provider Nurse Practitioner Family
DX: Z11.1 Encounter for screening for respiratory tuberculosis (principal)
CPT/HCPCS: 36415; 86481